=== PATIENT | male | born 1940 | race Caucasian/White ===

== ENCOUNTER 2017-09-07 19:30 | Emergency (ER) | payer OTHER ==
[~2017-09-07] VITALS: Ht 175.3 cm; Wt 53.8 kg
[2017-09-07 19:38] VITALS: TEMP 37.6; Ht 175.3 cm; Wt 53.8 kg
[2017-09-07] MEDS ORDERED: XYLOCAINE 1%/SOD BICARB 20 ML VIAL INFIL ONE ×2 (19:55→20:00)
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
--- NOTE | 2017-09-07 20:39 | EMERGENCY ROOM VISIT NOTE ---
ED Visit Note 77-year-old male who I was asked by Dr. Koehler, ED attending physician to perform a nose laceration repair. Please see Dr. Koehler's dictation for further treatment and final disposition. PROCEDURE NOTE: Examination shows a 2 cm circular laceration of the tip of the nose. The tip is vascularized. Mild bleeding is noted. The patient provided verbal consent for laceration repair under local anesthesia. Using buffered 1% lidocaine without epinephrine, good local anesthesia was administered. The wound was then peripherally cleansed with iodine, then the wound was approximated using 5-0 nylon simple interrupted sutures. The laceration was stellate in character. There may have been extension of the laceration into bilateral nostrils. The patient refused any further suture repair beyond the external nasal structure.
[2017-09-07 21:55] VITALS: BP 188/94; PULSE 68; O2SAT 98
== END 2017-09-07 21:42 | disposition home or self-care (01) ==
LOC: C.EDA 19:35
DX: S01.21XA Laceration without foreign body of nose, initial encounter (principal); V89.2XXA Person injured in unspecified motor-vehicle accident, traffic, initial encounter; V49.9XXA Car occupant (driver) (passenger) injured in unspecified traffic accident, initial encounter; Y92.488 Other paved roadways as the place of occurrence of the external cause; F17.200 Nicotine dependence, unspecified, uncomplicated